=== PATIENT | female | born 1945 | race Caucasian/White ===

== ENCOUNTER 2020-10-16 12:59 | Inpatient (IN) ==
[2020-10-16] MEDS ORDERED: SODIUM CHLORIDE 0.9% 1,000 ML IV STA (15:45)
[2020-10-16 16:38] LABS: Basophils # 0.1 10*3/uL (0.0-0.2); Basophils % 0.7 % (0.0-0.8); Eosinophils # 0.2 10*3/uL (0.0-0.87); Eosinophils % 3.3 % (0.00-10.9); Hematocrit 35.2 VOL% (35.7-47.0); Hemoglobin 11.4 GM/DL (12.0-16.0); Immature Granulocytes % 0.3 %; Immature Granulocytes Absolute 0.02 #; Lymphocytes # 0.9 10*3/uL (1.4-4.0); Lymphocytes % 12.1 % (21.3-54.2); Mean Corpuscular HGB Conc 32.4 GM/DL (32-36); Mean Corpuscular Volume 84.2 FL (87-102); Mean Platelet Volume 10.1 FL (9.6-12.0); Monocytes % 9.2 % (1.7-12.7); Neutrophils % 74.4 % (38.7-73.9); Platelet Count 275 T/CUMM (130-400); Red Blood Count 4.18 MC/CUMM (3.8-5.5); Red Cell Distribution Width 12.3 % (9.3-17.3); White Blood Count 7.4 T/CUMM (4-12)
[2020-10-16 16:55] LABS: Albumin 3.7 G/DL (3.4-5.0); Calcium 13.1 MG/DL (8.5-10.1); Osmolality,Calculated 290.4 MOS/KG (273-304); Potassium 2.7 MMOL/L (3.5-5.1); Total Protein 7.5 G/DL (6.4-8.2)
[2020-10-16 17:02] LABS: Thyroid Stimulating Hormone 0.65 uIU/ml (0.358-3.74)
[2020-10-16 17:58] LABS: Bilirubin,Urine Negative (Negative); Blood, Urine Negative (Negative); Glucose,Urine (UA) Negative (Negative); Hyaline Casts,Urine 3 /LPF (0-3); Ketones,Urine Negative (Negative); Mucus,Urine Occasional /LPF (Occasional); Nitrite,Urine Negative (Negative); Protein,Urine Negative; RBC,Urine 1 /HPF (0-4); Squamous Epithelial Cell,Urine Occasional /HPF (0-10); Urine Appearance CLEAR (Clear); Urine Color Straw (Yellow); Urine Specific Gravity 1.009 (1.001-1.035); Urine Urobilinogen < 2.0 EU/DL (0.2-1.0)
[2020-10-16] MEDS ORDERED: POTASSIUM CHLORIDE 20 MEQ TABLET PO ONE (18:14)
[2020-10-16] MEDS ORDERED: DEXTROSE 50% 25 GM/50 ML VIAL IV PRN (18:22)
[2020-10-16] MEDS ORDERED: GLUCAGON 1 MG VIAL IM PRN (18:22)
[2020-10-16] MEDS ORDERED: CALCITONIN 400 UNIT/2 ML VIAL SUBCUT SCH (18:30)
[2020-10-16] MEDS ORDERED: ONDANSETRON 4 MG/2 ML VIAL IV PRN (18:34)
[2020-10-16] MEDS ORDERED: ACETAMINOPHEN 325 MG TABLET PO PRN (18:34)
[2020-10-16] MEDS: SODIUM CHLOR 0.9% KCL 40 MEQ 40 MEQ/1,000 ML BAG IV SCH (18:44)
[2020-10-16] MEDS: ENOXAPARIN 30 MG/0.3 ML SYRINGE SUBCUT SCH (18:49)
[2020-10-16 19:06] LABS: Risk Ratio 3.9
[2020-10-16] MEDS ORDERED: MECLIZINE 25 MG TABLET PO PRN (19:56)
[2020-10-16 20:26] LABS: Parathyroid Hormone Intact 16.6 PG/ML (18.4-80.1)
[2020-10-16] MEDS: amLODIPine 2.5 MG TABLET PO SCH (21:07)
[2020-10-17] MEDS: SODIUM CHLOR 0.9% KCL 40 MEQ 40 MEQ/1,000 ML BAG IV SCH ×2 (03:40→11:52)
[2020-10-17 05:49] LABS: Basophils # 0.1 10*3/uL (0.0-0.2); Basophils % 1.1 % (0.0-0.8); Eosinophils # 0.3 10*3/uL (0.0-0.87); Hematocrit 31.4 VOL% (35.7-47.0); Hemoglobin 9.9 GM/DL (12.0-16.0); Immature Granulocytes % 0.2 %; Immature Granulocytes Absolute 0.01 #; Lymphocytes # 0.9 10*3/uL (1.4-4.0); Lymphocytes % 17.2 % (21.3-54.2); Mean Corpuscular HGB Conc 31.5 GM/DL (32-36); Mean Corpuscular Volume 85.6 FL (87-102); Mean Platelet Volume 10.1 FL (9.6-12.0); Monocytes % 15.2 % (1.7-12.7); Neutrophils % 61.3 % (38.7-73.9); Platelet Count 243 T/CUMM (130-400); Red Blood Count 3.67 MC/CUMM (3.8-5.5); Red Cell Distribution Width 12.3 % (9.3-17.3); White Blood Count 5.4 T/CUMM (4-12)
[2020-10-17 06:18] LABS: Albumin 2.9 G/DL (3.4-5.0); Bilirubin,Total 0.8 MG/DL (0.2-1.0); Calcium 11.4 MG/DL (8.5-10.1); Osmolality,Calculated 295.7 MOS/KG (273-304); Potassium 3.8 MMOL/L (3.5-5.1); Total Protein 5.8 G/DL (6.4-8.2)
[2020-10-17] MEDS: LEVOTHYROXINE 50 MCG TABLET PO SCH (06:20)
[2020-10-17 06:34] LABS: Band Neutrophils 1 % (0-10); Eosinophils 4 % (0-10); Lymphocytes 18 % (20-55); Segmented Neutrophils 65 % (50-85); Total Cells Counted 100
[2020-10-17 06:35] LABS: Ovalocytes Few; Platelet Estimate Normal
[2020-10-17] MEDS: amLODIPine 2.5 MG TABLET PO SCH ×2 (08:23→20:55)
[2020-10-17] MEDS: ASPIRIN EC 81 MG TABLET PO SCH (08:23)
[2020-10-17] MEDS: OXYBUTYNIN XL 10 MG TABLET PO SCH (08:50)
[2020-10-17] MEDS ORDERED: POTASSIUM CHLORIDE 20 MEQ TABLET PO PRN (12:33)
[2020-10-17] MEDS: SODIUM CHLORIDE 0.9% 1,000 ML IV SCH ×3 (13:33→22:23)
[2020-10-17 15:23] LABS: Potassium 3.9 MMOL/L (3.5-5.1)
[2020-10-17 15:24] LABS: Calcium 10.9 MG/DL (8.5-10.1)
[2020-10-17] MEDS: ENOXAPARIN 30 MG/0.3 ML SYRINGE SUBCUT SCH (18:15)
[2020-10-17] MEDS: TIMOLOL 0.5% OPH SOLN 5 ML BOTTLE BOTH EYES SCH (20:55)
[2020-10-17] MEDS: BRIMONIDINE 0.2% OPH SOLN 5 ML BOTTLE BOTH EYES SCH (20:55)
[2020-10-18] MEDS: SODIUM CHLORIDE 0.9% 1,000 ML IV SCH ×2 (02:51→08:11)
[2020-10-18 05:18] LABS: Basophils # 0.1 10*3/uL (0.0-0.2); Basophils % 1.2 % (0.0-0.8); Eosinophils # 0.4 10*3/uL (0.0-0.87); Hematocrit 30.3 VOL% (35.7-47.0); Hemoglobin 9.7 GM/DL (12.0-16.0); Immature Granulocytes % 0.2 %; Immature Granulocytes Absolute 0.01 #; Lymphocytes # 0.9 10*3/uL (1.4-4.0); Lymphocytes % 17.8 % (21.3-54.2); Mean Corpuscular Volume 85.1 FL (87-102); Mean Platelet Volume 10.2 FL (9.6-12.0); Monocytes % 12.2 % (1.7-12.7); Neutrophils % 61.6 % (38.7-73.9); Platelet Count 219 T/CUMM (130-400); Red Blood Count 3.56 MC/CUMM (3.8-5.5); Red Cell Distribution Width 12.4 % (9.3-17.3)
[2020-10-18 05:45] LABS: Albumin 2.7 G/DL (3.4-5.0); Bilirubin,Total 0.4 MG/DL (0.2-1.0); Calcium 9.6 MG/DL (8.5-10.1); Osmolality,Calculated 295.6 MOS/KG (273-304); Potassium 3.6 MMOL/L (3.5-5.1); Total Protein 5.3 G/DL (6.4-8.2)
[2020-10-18] MEDS: LEVOTHYROXINE 50 MCG TABLET PO SCH (05:59)
[2020-10-18 06:55] LABS: Total Protein (Chem) 6.3 G/DL (6.4-8.3)
[2020-10-18] MEDS: amLODIPine 2.5 MG TABLET PO SCH ×2 (08:11→20:31)
[2020-10-18] MEDS: ASPIRIN EC 81 MG TABLET PO SCH (08:11)
[2020-10-18] MEDS: OXYBUTYNIN XL 10 MG TABLET PO SCH (08:11)
[2020-10-18] MEDS: PANTOPRAZOLE 40 MG TABLET PO SCH (08:11)
[2020-10-18] MEDS: BRIMONIDINE 0.2% OPH SOLN 5 ML BOTTLE BOTH EYES SCH ×2 (08:12→20:31)
[2020-10-18] MEDS: TIMOLOL 0.5% OPH SOLN 5 ML BOTTLE BOTH EYES SCH ×2 (08:12→20:31)
[2020-10-18 08:26] LABS: Albumin (SPE) 4.1 G/DL (3.2-5.3); Albumin (SPE) Rel % 64.9 %; Alpha 1 (SPE) 0.2 G/DL (0.1-0.4); Alpha 1 (SPE) Rel % 2.9 %; Alpha 2 (SPE) 0.8 G/DL (0.4-1.0); Alpha 2 (SPE) Rel % 12.2 %; Beta (SPE) 0.6 G/DL (0.5-1.1); Beta (SPE) Rel % 9.7 %; Gamma (SPE) Rel % 10.3 %
[2020-10-18 08:31] LABS: Gamma (SPE) 0.6 G/DL (0.7-1.7)
[2020-10-18 16:35] LABS: Total Protein 24 Hr Ur Result 162 MG/24HR (0-149.1); Total Volume,Urine 1625 ML (400-2000)
[2020-10-18 16:56] LABS: Bacteria,Urine Occasional /HPF (Few); Bilirubin,Urine Negative (Negative); Blood, Urine Negative (Negative); Glucose,Urine (UA) Negative (Negative); Hyaline Casts,Urine 1 /LPF (0-3); Ketones,Urine Negative (Negative); Mucus,Urine Occasional /LPF (Occasional); Nitrite,Urine Negative (Negative); Protein,Urine Negative; Squamous Epithelial Cell,Urine Occasional /HPF (0-10); Urine Appearance CLEAR (Clear); Urine Color Colorless (Yellow); Urine Specific Gravity 1.005 (1.001-1.035); Urine Urobilinogen < 2.0 EU/DL (0.2-1.0)
[2020-10-18] MEDS: ENOXAPARIN 30 MG/0.3 ML SYRINGE SUBCUT SCH (18:30)
[2020-10-19 05:27] LABS: Basophils # 0.1 10*3/uL (0.0-0.2); Basophils % 1.4 % (0.0-0.8); Eosinophils # 0.4 10*3/uL (0.0-0.87); Eosinophils % 6.2 % (0.00-10.9); Hematocrit 29.4 VOL% (35.7-47.0); Hemoglobin 9.6 GM/DL (12.0-16.0); Immature Granulocytes % 0.5 %; Immature Granulocytes Absolute 0.03 #; Lymphocytes # 1.1 10*3/uL (1.4-4.0); Lymphocytes % 15.9 % (21.3-54.2); Mean Corpuscular HGB Conc 32.7 GM/DL (32-36); Mean Corpuscular Volume 85.5 FL (87-102); Mean Platelet Volume 9.9 FL (9.6-12.0); Monocytes % 10.5 % (1.7-12.7); Neutrophils % 65.5 % (38.7-73.9); Platelet Count 223 T/CUMM (130-400); Red Blood Count 3.44 MC/CUMM (3.8-5.5); Red Cell Distribution Width 12.4 % (9.3-17.3); White Blood Count 6.7 T/CUMM (4-12)
[2020-10-19] MEDS: LEVOTHYROXINE 50 MCG TABLET PO SCH (05:32)
[2020-10-19 05:48] LABS: Albumin 2.8 G/DL (3.4-5.0); Bilirubin,Total 0.5 MG/DL (0.2-1.0); Calcium 9.5 MG/DL (8.5-10.1); Osmolality,Calculated 291.7 MOS/KG (273-304); Potassium 3.3 MMOL/L (3.5-5.1); Total Protein 5.6 G/DL (6.4-8.2)
[2020-10-19 07:05] LABS: 24 Hr Protein (Bench) 162 MG/24HR (0-149.1)
[2020-10-19] MEDS: OXYBUTYNIN XL 10 MG TABLET PO SCH (09:40)
[2020-10-19] MEDS: ASPIRIN EC 81 MG TABLET PO SCH (09:40)
[2020-10-19] MEDS: BRIMONIDINE 0.2% OPH SOLN 5 ML BOTTLE BOTH EYES SCH (09:40)
[2020-10-19] MEDS: PANTOPRAZOLE 40 MG TABLET PO SCH (09:40)
[2020-10-19] MEDS: TIMOLOL 0.5% OPH SOLN 5 ML BOTTLE BOTH EYES SCH (09:40)
[2020-10-19] MEDS: amLODIPine 2.5 MG TABLET PO SCH (09:40)
[2020-10-19 15:51] VITALS: BP 147/79
[2020-10-20 09:02] LABS: Immuno Free Light Chain Kappa 2.1 MG/DL (0.33-1.94); Immuno Free Light Chain Ratio 0.23 MG/DL (0.26-1.65)
== END 2020-10-19 19:10 | disposition home or self-care (01) | DRG 640 ==
LOC: N.ED 12:59 → SUATTDRO 18:19 → N.EDINP 18:19 → N.3E 19:53
PROVIDERS: ADMIT Internal Medicine; ATTEND Internal Medicine Nephrology